=== PATIENT | male | born 1965 | race Caucasian/White ===

== ENCOUNTER 2019-10-13 06:16 | Day surgery (SDC) | payer OTHER ==
[~2019-10-13] VITALS: Ht 180.3 cm; Wt 102.1 kg
[~2019-10-13 06:16] MED LIST: ASPI81TA85 PO; CYCL10TA PO; D3 22000 PO; LISI10TA4 PO; MAPA500T2 PO; MELO15TA28 PO; NS 1,000 ML IV ONE; OMEP-218 PO; SM LTAB5 PO; TRAM1CAP15 PO
[2019-10-13] MEDS ORDERED: PROPOFOL 200 MG/20 ML VIAL As Ordered ONE (07:49)
[2019-10-13] MEDS ORDERED: LIDOCAINE 2% INJ 100 MG/5 ML SDV (FOR ANES.) As Ordered ONE (07:49)
--- NOTE | 2019-10-13 07:51 | ROOR ---
Patient Name: Cleve Seth Procedure Date: 10/13/2019 7:29 AM Date of : 1965 Age: 54 Room: [facility] Gender: Male Note Status: Finalized Procedure: Total Colonoscopy to Cecum Indications: Screening for colorectal malignant neoplasm Providers: Jonh Covarrubias MD Referring MD: 1. No Referring Physician 1. No Referring Physician, Admin. Requesting Provider: Medicines: Monitored Anesthesia Care Complications: No immediate complications. Procedure: Pre-Anesthesia Assessment: - The heart rate, respiratory rate, oxygen saturations, blood pressure, adequacy of pulmonary ventilation, and response to care were monitored throughout the procedure. The Colonoscope was introduced through the anus and advanced to the cecum, identified by appendiceal orifice and ileocecal valve. The colonoscopy was performed without difficulty. The patient tolerated the procedure well. The quality of the bowel preparation was good. Findings: The perianal and digital rectal examinations were normal. Non-bleeding internal hemorrhoids were found during retroflexion. The hemorrhoids were small and Grade I (internal hemorrhoids that do not prolapse). Scattered small-mouthed diverticula were found in the recto-sigmoid colon, sigmoid colon and descending colon. The exam was otherwise without abnormality on direct and retroflexion views. Impression: - Non-bleeding internal hemorrhoids. - Diverticulosis in the recto-sigmoid colon, in the sigmoid colon and in the descending colon. - The examination was otherwise normal on direct and retroflexion views. - No specimens collected. - The exam was otherwise normal to the cecum. Recommendation: - Patient has a contact number available for emergencies. The signs and symptoms of potential delayed complications were discussed with the patient. Return to normal activities tomorrow. Written discharge instructions were provided to the patient. - High fiber diet. - Discharge patient to home. - Continue present medications. - Repeat colonoscopy in 10 years for screening purposes. - Return to referring physician. - The findings and recommendations were discussed with the patient's family. Jonh Covarrubias MD Jonh Covarrubias MD 10/13/2019 7:51:15 AM Electronically signed by Jonh Covarrubias MD Number of Addenda: 0 Note Initiated On: 10/13/2019 7:29 AM Estimated Blood Loss: Estimated blood loss: none.
[2019-10-13 08:10] VITALS: BP 140/83
== END 2019-10-13 08:15 | disposition home or self-care (01) ==
LOC: M OPP 06:16
PROVIDERS: ATTEND Internal Medicine Gastroenterology
DX: Z12.11 Encounter for screening for malignant neoplasm of colon (principal); K64.0 First degree hemorrhoids; K57.30 Diverticulosis of large intestine without perforation or abscess without bleeding; Z79.82 Long term (current) use of aspirin; Z79.891 Long term (current) use of opiate analgesic; Z79.899 Other long term (current) drug therapy; Z88.5 Allergy status to narcotic agent

== ENCOUNTER 2020-05-11 16:50 | Emergency (ER) | payer OTHER ==
[~2020-05-11] VITALS: Ht 180.3 cm; Wt 104.3 kg
[~2020-05-11 16:50] MED LIST changes: -ASPI81TA85 PO; +ASPI81TA86 PO; +CYCL-707 PO; -CYCL10TA PO; -NS 1,000 ML IV ONE
[2020-05-11 18:01] LABS: APPEARANCE, URINE CLEAR (CLEAR); BACTERIA, URINE AUTO NEGATIVE (NEGATIVE); BILIRUBIN, URINE AUTO NEGATIVE (NEGATIVE); BLOOD, URINE BLOOD NEGATIVE (NEGATIVE); COLOR, URINE YELLOW (YELLOW); GLUCOSE, URINE (UA) AUTO NEGATIVE (NEGATIVE); KETONE, URINE AUTO NEGATIVE (NEGATIVE); LEUKOCYTE ESTERASE, URINE AUTO NEGATIVE (NEGATIVE); NITRITE, URINE AUTO NEGATIVE (NEGATIVE); PROTEIN, URINE AUTO NEGATIVE (NEGATIVE); RBC, URINE AUTO 1 /HPF (0-3); SPECIFIC GRAVITY URINE AUTO 1.026 (1.002-1.035); SQUAMOUS EPITHELIAL CELL UR AU 0 /HPF (0-6); UROBILINOGEN, URINE AUTO 0.2 mg/dL (0.0-2.0); WBC, URINE AUTO 1 /HPF (0-3)
[2020-05-11] MEDS ORDERED: ISOVUE-370 76% 100ML VIAL As Ordered ONE (18:13)
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
[2020-05-11 19:18] VITALS: BP 144/90
== END 2020-05-11 19:22 | disposition home or self-care (01) ==
LOC: M ED 16:50
DX: S30.1XXA Contusion of abdominal wall, initial encounter (principal); V49.9XXA Car occupant (driver) (passenger) injured in unspecified traffic accident, initial encounter; Y92.410 Unspecified street and highway as the place of occurrence of the external cause; I10 Essential (primary) hypertension; Z79.82 Long term (current) use of aspirin; Z88.5 Allergy status to narcotic agent
CPT/HCPCS: 36415; 74177; 80047; 81001; 99284; Q9967

== ENCOUNTER → 2021-05-16 | Outpatient (CLI) | payer SELFPAY ==
[~2021-05-16] MED LIST changes: +LISI10TA22 PO; -LISI10TA4 PO
== END ==
LOC: M LABSMTC 13:07
PROVIDERS: ATTEND Pediatrics
DX: Z20.822 Contact with and (suspected) exposure to COVID-19 (principal)

== ENCOUNTER → 2021-12-10 | Outpatient (CLI) | payer OTHER ==
[~2021-12-10] MED LIST changes: +OMEP-173 PO; -OMEP-218 PO
== END ==
LOC: M RAD 15:42
PROVIDERS: ATTEND Chiropractor
DX: M51.26 Other intervertebral disc displacement, lumbar region (principal); M51.27 Other intervertebral disc displacement, lumbosacral region; M99.01 Segmental and somatic dysfunction of cervical region; M99.02 Segmental and somatic dysfunction of thoracic region; M99.03 Segmental and somatic dysfunction of lumbar region; M99.04 Segmental and somatic dysfunction of sacral region; M99.05 Segmental and somatic dysfunction of pelvic region

== ENCOUNTER → 2024-03-05 | Outpatient (CLI) | payer OTHER | LOC: M PLAIMG 08:21 | PROVIDERS: ATTEND Internal Medicine Cardiovascular Disease | DX: R00.2 Palpitations (principal); R94.31 Abnormal electrocardiogram [ECG] [EKG]; R60.0 Localized edema ==